=== PATIENT | female | born 1950 | race African-American/Black ===

== ENCOUNTER 2018-03-10 11:59 | Inpatient (IN) | payer MEDICARE ==
--- NOTE | 2018-03-10 12:12 | ER Document Report ---
ED General - General Stated Complaint: NEAR SYNCOPE Time Seen by Provider: 03/10/18 12:11 Notes: Patient is a 67-year-old female that presents to the emergency department for chief complaint of lightheadedness and near syncope. Patient is deaf, and history obtained through writing questions, and patient responding. We did attempt to use the [employer] conference translator, but were not able to reach an Vincentian interactive media designer. Patient was out with some friends, at a restaurant, she was sitting down she started feeling lightheaded, and sweaty, and nauseous, and had a brief syncopal episode at this point EMS was called, upon arrival, they obtained vital signs, when she stood up, she did have positive orthostatic signs. They gave her some IV fluids, and at this time she is feeling much better, denies having any lightheadedness, and overall is feeling better. She has had episodes similar to this in the past. She is on medication for blood pressure and did take her blood pressure medicines this morning. Denies history of CHF, CAD, or dysrhythmias. She denies having any chest pain or shortness of breath at this time. Past Medical History: Hypertension Past Surgical History: Surgical history reviewed, not pertinent to presentation Social History: Non-smoker, rare alcohol use, no drug use. Family History: Reviewed and noncontributory for presenting illness Allergies: Reviewed, see documented allergy list. REVIEW OF SYSTEMS: Other than noted above, the 12 point review of systems was reviewed with the patient and were negative, all pertinent findings are included in the HPI. PHYSICAL EXAMINATION: Vital signs reviewed, nursing noted reviewed. GENERAL: Well-appearing, well-nourished and in no acute distress. HEAD: Atraumatic, normocephalic. EYES: Eyes appear normal, extraocular movements intact, sclera anicteric, conjunctiva are normal. ENT: nares patent, oropharynx clear without exudates. Moist mucous membranes. NECK: Normal range of motion, supple without lymphadenopathy LUNGS: Breath sounds clear to auscultation bilaterally and equal. No wheezes rales or rhonchi. HEART: Heart rate mildly tachycardic, regular rhythm., No audible murmurs ABDOMEN: Soft, nontender, normoactive bowel sounds. No rebound, guarding, or rigidity. No masses appreciated. EXTREMITIES: Nontender, good range of motion, no pitting or edema. NEUROLOGICAL: No focal neurological deficits. Moves all extremities spontaneously Motor and sensory grossly intact on exam. PSYCH: Normal mood, normal affect. SKIN: Warm, Dry, normal turgor, no rashes or lesions noted on exposed skin Past Medical History - Social History Smoking Status: Never Smoker Family History: Reviewed & Not Pertinent Physical Exam - Vital signs Vitals: Resp Pulse Ox 20 98 03/10/18 12:49 03/10/18 12:49 Course - Re-evaluation Re-evalutation: Patient seen and examined vital signs reviewed. Laboratory data and imaging were ordered as appropriate for the patient's presenting symptoms and complaint, with consideration of any critical or life threatening conditions that may be associated with their obtained history and exam as noted above. Patient was treated with IV fluid bolus Results were reviewed when available and demonstrated normal CBC, negative troponin, UA was positive for ketones, indicative of possible mild dehydration, leading to the patient's orthostasis. CMP results, had hemolyzed twice, I did ask for the lab to result her renal function, her potassium was 3.6 despite hemolysis, which could indicate significant hypokalemia, I did give the patient 40 mEq of oral potassium, given IV fluids, orthostatic vital signs were ordered, yet to be completed. The patient was re-evaluated and was improved, however she is still tachycardic, which is concerning, with a syncopal episode, thought to be orthostatic, I felt the patient should be observed in the hospital for this, given that she is not improving from a tachycardia standpoint with IV fluids, and possible significant hypokalemia, will order repeat BMP, I did give the patient 40 mEq of oral potassium, ordered a repeat BMP to be drawn, but at this point I discussed this case with the hospitalist, given that the patient has persistent tachycardia despite IV fluids, and a syncopal episode, with her age, there is concern for other underlying etiology of her syncopal episode, and warrants further management, which they are in agreement with, Dr. Gil, graciously accepted the patient onto their service. Results were discussed with the patient at this point, after careful consideration I feel that that patient can be discharged from the emergency department, the patient was educated treatments and reasons to return to the emergency department based on their presumed diagnosis as noted above, they were advised to followup with a primary care physician in 2-3 days. Patient was agreeable to plan of care. *Note is created using voice recognition software and may contain spelling, syntax or grammatical errors. Laboratory 03/10/18 03/10/18 03/10/18 13:19 13:19 13:19 WBC 9.5 RBC 4.66 Hgb 14.1 Hct 42.6 MCV 91 MCH 30.3 MCHC 33.1 RDW 15.8 H Plt Count 264 Seg Neutrophils % 82.3 H Lymphocytes % 11.1 L Monocytes % 6.0 Eosinophils % 0.1 Basophils % 0.5 Absolute Neutrophils 7.8 Absolute Lymphocytes 1.1 Absolute Monocytes 0.6 Absolute Eosinophils 0.0 Absolute Basophils 0.0 Sodium Cancelled Potassium Cancelled Chloride Cancelled Carbon Dioxide Cancelled Anion Gap Cancelled BUN Cancelled Creatinine Cancelled Est GFR ( Amer) Cancelled Est GFR (Non-Af Amer) Cancelled Glucose Cancelled Calcium Cancelled Total Bilirubin Cancelled Direct Bilirubin Cancelled Neonat Total Bilirubin Cancelled Neonat Direct Bilirubin Cancelled Neonat Indirect Bili Cancelled AST Cancelled ALT Cancelled Alkaline Phosphatase Cancelled Troponin I < 0.012 Total Protein Cancelled Albumin Cancelled Urine Color Urine Appearance Urine pH Ur Specific [place] Urine Protein Urine Glucose (UA) Urine Ketones Urine Blood Urine Nitrite Urine Bilirubin Urine Urobilinogen Ur Leukocyte Esterase Urine WBC (Auto) Urine RBC (Auto) U Hyaline Cast (Auto) Urine Bacteria (Auto) Squamous Epi Cells Auto Urine Mucus (Auto) Urine Ascorbic Acid 03/10/18 03/10/18 15:06 15:15 WBC RBC Hgb Hct MCV MCH MCHC RDW Plt Count Seg Neutrophils % Lymphocytes % Monocytes % Eosinophils % Basophils % Absolute Neutrophils Absolute Lymphocytes Absolute Monocytes Absolute Eosinophils Absolute Basophils Sodium 136.0 L Potassium 3.6 Chloride 102 Carbon Dioxide 22 Anion Gap 12 BUN 20 Creatinine 1.13 Est GFR ( Amer) 58 L Est GFR (Non-Af Amer) 48 L Glucose 126 H Calcium 8.9 Total Bilirubin 1.9 H Direct Bilirubin 0.7 H Neonat Total Bilirubin Not Reportable Neonat Direct Bilirubin Not Reportable Neonat Indirect Bili Not Reportable AST 62 H ALT 27 Alkaline Phosphatase 75 Troponin I Total Protein 8.6 H Albumin 4.3 Urine Color YELLOW Urine Appearance CLOUDY Urine pH 5.0 Ur Specific [place] 1.017 Urine Protein 100 H Urine Glucose (UA) 50 H Urine Ketones 20 H Urine Blood MODERATE H Urine Nitrite NEGATIVE Urine Bilirubin NEGATIVE Urine Urobilinogen 2.0 H Ur Leukocyte Esterase SMALL H Urine WBC (Auto) 7 Urine RBC (Auto) 3 U Hyaline Cast (Auto) 27 Urine Bacteria (Auto) TRACE Squamous Epi Cells Auto 3 Urine Mucus (Auto) MANY Urine Ascorbic Acid NEGATIVE - Vital Signs Vital signs: Temp Pulse Resp BP Pulse Ox 97.6 F 111 H 31 H 143/92 H 97 03/10/18 13:40 03/10/18 13:28 03/10/18 14:31 03/10/18 13:40 03/10/18 14:30 - Laboratory Result Diagrams: 03/10/18 13:19 03/10/18 15:15 Laboratory results interpreted by me: 03/10/18 03/10/18 03/10/18 13:19 15:06 15:15 RDW 15.8 H Seg Neutrophils % 82.3 H Lymphocytes % 11.1 L Sodium 136.0 L Est GFR ( Amer) 58 L Est GFR (Non-Af Amer) 48 L Glucose 126 H Total Bilirubin 1.9 H Direct Bilirubin 0.7 H AST 62 H Total Protein 8.6 H Urine Protein 100 H Urine Glucose (UA) 50 H Urine Ketones 20 H Urine Blood MODERATE H Urine Urobilinogen 2.0 H Ur Leukocyte Esterase SMALL H - EKG Interpretation by Me Additional EKG results interpreted by me: EKG demonstrates sinus tachycardia with a ventricular rate of 108 bpm, left axis deviation, QTC 488 ms, poor R wave progression, no ST changes noted, no prior EKG for comparison. Discharge - Discharge Clinical Impression: Tachycardia Syncope Qualifiers: Syncope type: unspecified Qualified Code(s): R55 - Syncope and collapse Condition: Stable Disposition: ADMITTED OBSERVATION Admitting Provider: Hospitalist - Dr. Gil Unit Admitted: Telemetry Referrals: JE TIPTON MD [ACTIVE STAFF] - Follow up tomorrow (or your primary care. )
[2018-03-10] MEDS ORDERED: NORMAL SALINE 1000 ML 1,000 ML IV ONE (12:40)
--- NOTE | 2018-03-10 12:50 | EKG REPORT ---
SEVERITY:- ABNORMAL ECG - SINUS TACHYCARDIA PROBABLE LEFT ATRIAL ABNORMALITY LEFT VENTRICULAR HYPERTROPHY CONSIDER ANTERIOR INFARCT BORDERLINE T ABNORMALITIES, INFERIOR LEADS BORDERLINE PROLONGED QT INTERVAL : Confirmed by: Gal Kramer MD 10-Mar-2018 12:49:46
[2018-03-10 13:50] LABS: ABSOLUTE LYMPHOCYTES (AUTO) 1.1 10^3/uL (0.5-4.7); ABSOLUTE MONOCYTES (AUTO) 0.6 10^3/uL (0.1-1.4); ABSOLUTE NEUT (AUTO) 7.8 10^3/uL (1.7-8.2); BASOPHILS % (AUTO) 0.5 % (0-2); EOSINOPHILS % (AUTO) 0.1 % (0-6); HEMATOCRIT 42.6 % (36.0-47.0); HEMOGLOBIN 14.1 g/dL (12.0-15.5); LYMPHOCYTES % (AUTO) 11.1 % (13-45); MEAN CORPUSCULAR HEMOGLOBIN 30.3 pg (27.0-33.4); MEAN CORPUSCULAR HGB CONC 33.1 g/dL (32.0-36.0); MEAN CORPUSCULAR VOLUME 91 fl (80-97); PLATELET COUNT 264 10^3/uL (150-450); RED BLOOD COUNT 4.66 10^6/uL (3.72-5.28); RED CELL DISTRIBUTION WIDTH 15.8 % (11.5-14.0); SEGMENTED NEUTROPHILS % (AUTO) 82.3 % (42-78); TOTAL CELLS COUNTED % (AUTO) 100 %; WHITE BLOOD COUNT 9.5 10^3/uL (4.0-10.5)
[2018-03-10 15:35] LABS: APPEARANCE,URINE CLOUDY; BILIRUBIN,URINE NEGATIVE (NEGATIVE); GLUCOSE, URINE 50 mg/dL (NEGATIVE); KETONES,URINE 20 mg/dL (NEGATIVE); LEUKOCYTE ESTERASE,URINE SMALL (NEGATIVE); NITRITE,URINE NEGATIVE (NEGATIVE); PROTEIN,URINE 100 mg/dL (NEGATIVE); URINE SPECIFIC GRAVITY 1.017
[2018-03-10 15:36] LABS: COLOR,URINE YELLOW
[2018-03-10 16:09] LABS: ALBUMIN 4.3 g/dL (3.5-5.0); ANION GAP 12 (5-19); BILIRUBIN,DIRECT 0.7 mg/dL (0.0-0.4); BILIRUBIN,TOTAL 1.9 mg/dL (0.2-1.3); BLOOD UREA NITROGEN 20 mg/dL (7-20); CALCIUM 8.9 mg/dL (8.4-10.2); CARBON DIOXIDE 22 mmol/L (22-30); CHLORIDE 102 mmol/L (98-107); GLUCOSE 126 mg/dL (75-110); TOTAL PROTEIN 8.6 g/dL (6.3-8.2)
[2018-03-10 16:19] LABS: ALKALINE PHOSPHATASE 75 U/L (38-126); ASPARTATE AMINO TRANSFERASE 62 U/L (14-36); POTASSIUM 3.6 mmol/L (3.6-5.0)
[2018-03-10 16:20] LABS: ALANINE AMINOTRANSFERASE 27 U/L (9-52)
[2018-03-10] MEDS ORDERED: POTASSIUM CHLORIDE 10 MEQ CAPSULE.ER PO ONE (16:21)
--- NOTE | 2018-03-10 17:22 | PDOC H&P ---
History of Present Illness Admission Date/PCP: 03/10/18 17:17 Patient complains of: Presyncope History of Present Illness: MUNDO RAE is a 67 year old female with deafness, hypertension and hyperlipidemia who was brought in because of presyncope. History was obtained with a personal/proofsheet corrector on bedside. Patient was apparently fine this morning. She went to [employer] and was sitting in her of dizzy. She does slouch while sitting on the chair not pass out. No head trauma. Patient was seen by EMS and she was found to have orthostatic blood pressures. Upon further questioning, patient says that she has been having multiple episodes of watery, nonbloody stools in the past few days. She says that she had 4 episodes of watery stools yesterday. Denies nausea or vomiting but says that she has been having poor oral intake and has not been drinking or eating well in the past few days. She denies fever. Denies chest pain or shortness of breath. Past Medical History Cardiac Medical History: Reports: Hypertension Social History Smoking Status: Never Smoker Family History Family History: Reviewed & Not Pertinent Parental Family History Reviewed: Yes - no premature CAD Children Family History Reviewed: No Sibling(s) Family History Reviewed.: No Medication/Allergy Allergies/Adverse Reactions: No Known Allergies Allergy (Unverified 03/10/18 20:51) Review of Systems All systems: reviewed and no additional remarkable complaints except as stated - As mentioned in HPI Physical Exam Vital Signs: Temp Pulse Resp BP Pulse Ox 97.6 F 111 H 31 H 143/92 H 97 03/10/18 13:40 03/10/18 13:28 03/10/18 14:31 03/10/18 13:40 03/10/18 14:30 Intake & Output 03/09/18 03/10/18 03/11/18 06:59 06:59 06:59 Intake Total 1000 Balance 1000 Weight 185 lb General appearance: PRESENT: no acute distress, well-developed, well-nourished Head exam: PRESENT: atraumatic, normocephalic Eye exam: PRESENT: conjunctiva pink, EOMI, PERRLA. ABSENT: scleral icterus Ear exam: PRESENT: normal external ear exam Mouth exam: PRESENT: moist, tongue midline Neck exam: ABSENT: carotid bruit, JVD, lymphadenopathy, thyromegaly Respiratory exam: PRESENT: clear to auscultation carolyn. ABSENT: rales, rhonchi, wheezes Cardiovascular exam: PRESENT: RRR. ABSENT: diastolic murmur, rubs, systolic murmur Pulses: PRESENT: normal dorsalis pedis pul GI/Abdominal exam: PRESENT: normal bowel sounds, soft. ABSENT: distended, guarding, mass, organolmegaly, rebound, tenderness Rectal exam: PRESENT: deferred Neurological exam: PRESENT: alert, awake, oriented to person, oriented to place, oriented to time, oriented to situation, CN II-XII grossly intact. ABSENT: motor sensory deficit Results Laboratory Results: 03/10/18 13:19 03/10/18 15:15 03/10/18 03/10/18 03/10/18 13:19 13:19 15:06 WBC 9.5 RBC 4.66 Hgb 14.1 Hct 42.6 MCV 91 MCH 30.3 MCHC 33.1 RDW 15.8 H Plt Count 264 Seg Neutrophils % 82.3 H Lymphocytes % 11.1 L Monocytes % 6.0 Eosinophils % 0.1 Basophils % 0.5 Absolute Neutrophils 7.8 Absolute Lymphocytes 1.1 Absolute Monocytes 0.6 Absolute Eosinophils 0.0 Absolute Basophils 0.0 Sodium Cancelled Potassium Cancelled Chloride Cancelled Carbon Dioxide Cancelled Anion Gap Cancelled BUN Cancelled Creatinine Cancelled Est GFR ( Amer) Cancelled Est GFR (Non-Af Amer) Cancelled Glucose Cancelled Calcium Cancelled Total Bilirubin Cancelled AST Cancelled ALT Cancelled Alkaline Phosphatase Cancelled Total Protein Cancelled Albumin Cancelled Urine Color YELLOW Urine Appearance CLOUDY Urine pH 5.0 Ur Specific [place] 1.017 Urine Protein 100 H Urine Glucose (UA) 50 H Urine Ketones 20 H Urine Blood MODERATE H Urine Nitrite NEGATIVE Ur Leukocyte Esterase SMALL H Urine WBC (Auto) 7 Urine RBC (Auto) 3 03/10/18 15:15 WBC RBC Hgb Hct MCV MCH MCHC RDW Plt Count Seg Neutrophils % Lymphocytes % Monocytes % Eosinophils % Basophils % Absolute Neutrophils Absolute Lymphocytes Absolute Monocytes Absolute Eosinophils Absolute Basophils Sodium 136.0 L Potassium 3.6 Chloride 102 Carbon Dioxide 22 Anion Gap 12 BUN 20 Creatinine 1.13 Est GFR ( Amer) 58 L Est GFR (Non-Af Amer) 48 L Glucose 126 H Calcium 8.9 Total Bilirubin 1.9 H AST 62 H ALT 27 Alkaline Phosphatase 75 Total Protein 8.6 H Albumin 4.3 Urine Color Urine Appearance Urine pH Ur Specific [place] Urine Protein Urine Glucose (UA) Urine Ketones Urine Blood Urine Nitrite Ur Leukocyte Esterase Urine WBC (Auto) Urine RBC (Auto) 03/10/18 13:19 Troponin I < 0.012 Assessment & Plan - Diagnosis (1) Pre-syncope Is this a current diagnosis for this admission?: Yes Plan: Likely secondary to orthostasis from volume depletion. Patient does appear dehydrated. He was given a liter of fluid bolus in the ER. We will continue IV fluids. We will continue to check orthostatic vital signs every 4. Will observe patient on telemetry floor overnight. (2) Acute diarrhea Is this a current diagnosis for this admission?: Yes Plan: Check stool WBC and C. difficile testing if there is recurrence of watery stools. - Time Time Spent: 30 to 50 Minutes
[2018-03-10 19:33] LABS: ANION GAP 10 (5-19); BLOOD UREA NITROGEN 21 mg/dL (7-20); CALCIUM 8.8 mg/dL (8.4-10.2); CARBON DIOXIDE 24 mmol/L (22-30); CHLORIDE 103 mmol/L (98-107); GLUCOSE 118 mg/dL (75-110); POTASSIUM 3.9 mmol/L (3.6-5.0); SODIUM 136.6 mmol/L (137-145)
[2018-03-10] MEDS: HEPARIN SOD (PORCINE) 5,000 UNIT/ML 1 ML SYRINGE SUBCUT SCH (21:43)
[2018-03-10] MEDS: NORMAL SALINE 1000 ML 1,000 ML IV PRN (22:46)
[2018-03-11 05:26] LABS: ALANINE AMINOTRANSFERASE 27 U/L (9-52); ALBUMIN 3.4 g/dL (3.5-5.0); ALKALINE PHOSPHATASE 58 U/L (38-126); ANION GAP 8 (5-19); ASPARTATE AMINO TRANSFERASE 43 U/L (14-36); BILIRUBIN,DIRECT 0.3 mg/dL (0.0-0.4); BILIRUBIN,TOTAL 1.1 mg/dL (0.2-1.3); BLOOD UREA NITROGEN 20 mg/dL (7-20); CALCIUM 8.8 mg/dL (8.4-10.2); CARBON DIOXIDE 21 mmol/L (22-30); CHLORIDE 108 mmol/L (98-107); GLUCOSE 92 mg/dL (75-110); SODIUM 137.4 mmol/L (137-145); TOTAL PROTEIN 6.9 g/dL (6.3-8.2)
[2018-03-11] MEDS: NORMAL SALINE 1000 ML 1,000 ML IV PRN (05:26)
[2018-03-11] MEDS: HEPARIN SOD (PORCINE) 5,000 UNIT/ML 1 ML SYRINGE SUBCUT SCH ×2 (09:17→22:38)
[2018-03-11] MEDS ORDERED: NORMAL SALINE 1000 ML 1,000 ML IV ONE (10:45)
--- NOTE | 2018-03-11 19:02 | PDOC PROGRESS REPORT ---
Subjective Progress Note for:: 03/11/18 Subjective:: MUNDO RAE is a 67 year old female with deafness, hypertension and hyperlipidemia who was brought in because of presyncope and diarrhea. History was obtained with a personal/translator interpreter on bedside. She was admitted for presyncope significant orthostasis. No acute event overnight. This morning, patient says she felt better. However pressures today are still orthostatic. She says her stools have become more formed and is almost close to her baseline. Denies chest pain or shortness of breath. Reason For Visit: PRESYNCOPE, ACUTE DIARRHEA Physical Exam Vital Signs: Temp Pulse Resp BP Pulse Ox 98.3 F 97 14 169/90 H 98 03/11/18 16:30 03/11/18 16:30 03/11/18 16:30 03/11/18 16:30 03/11/18 16:30 Intake & Output 03/10/18 03/11/18 03/12/18 06:59 06:59 06:59 Intake Total 2474 2598 Balance 2474 2598 Weight 216 lb 7.903 oz General appearance: PRESENT: no acute distress, well-developed, well-nourished Head exam: PRESENT: atraumatic, normocephalic Eye exam: PRESENT: conjunctiva pink, EOMI, PERRLA. ABSENT: scleral icterus Ear exam: PRESENT: normal external ear exam Neck exam: ABSENT: carotid bruit, JVD, lymphadenopathy, thyromegaly Respiratory exam: PRESENT: clear to auscultation carolyn. ABSENT: rales, rhonchi, wheezes Cardiovascular exam: PRESENT: RRR. ABSENT: diastolic murmur, rubs, systolic murmur Pulses: PRESENT: normal dorsalis pedis pul GI/Abdominal exam: PRESENT: normal bowel sounds, soft. ABSENT: distended, guarding, mass, organolmegaly, rebound, tenderness Rectal exam: PRESENT: deferred Neurological exam: PRESENT: alert, awake, oriented to person, oriented to place, oriented to time, oriented to situation, CN II-XII grossly intact. ABSENT: motor sensory deficit Results Laboratory Results: 03/10/18 13:19 03/11/18 04:32 03/10/18 03/11/18 03/11/18 19:00 04:32 05:00 Sodium 136.6 L 137.4 Potassium 3.9 4.0 Chloride 103 108 H Carbon Dioxide 24 21 L Anion Gap 10 8 BUN 21 H 20 Creatinine 1.05 0.81 Est GFR ( Amer) > 60 > 60 Est GFR (Non-Af Amer) 52 L > 60 Glucose 118 H 92 Calcium 8.8 8.8 Total Bilirubin 1.1 AST 43 H ALT 27 Alkaline Phosphatase 58 Total Protein 6.9 Albumin 3.4 L Stool for White Cells NO WBCs SEEN 03/10/18 15:06 Clean Catch Midstream Urine Culture - Final Mixed Urogenital [place] 03/10/18 13:19 Troponin I < 0.012 Assessment & Plan - Diagnosis (1) Pre-syncope Is this a current diagnosis for this admission?: Yes Plan: Likely secondary to orthostasis from volume depletion from dehydration. No recurrence of symptoms but blood pressures this morning remain orthostatic. (2) Acute diarrhea Is this a current diagnosis for this admission?: Yes Plan: Resolved. (3) Orthostasis Is this a current diagnosis for this admission?: Yes Plan: Will give another bolus of fluid. Will continue IV fluids today. Continue to check orthostatic vital signs. - Time Time Spent with patient: 15-24 minutes
[2018-03-12] MEDS: HEPARIN SOD (PORCINE) 5,000 UNIT/ML 1 ML SYRINGE SUBCUT SCH ×2 (09:21→22:47)
[2018-03-12] MEDS ORDERED: LOSARTAN POTASSIUM 50 MG TABLET PO ONE (09:30)
[2018-03-12 12:32] LABS: APPEARANCE,URINE CLEAR; BILIRUBIN,URINE NEGATIVE (NEGATIVE); COLOR,URINE STRAW; GLUCOSE, URINE NEGATIVE (NEGATIVE); KETONES,URINE NEGATIVE (NEGATIVE); LEUKOCYTE ESTERASE,URINE NEGATIVE (NEGATIVE); NITRITE,URINE NEGATIVE (NEGATIVE); PROTEIN,URINE NEGATIVE (NEGATIVE); URINE SPECIFIC GRAVITY 1.004; UROBILINOGEN,URINE NEGATIVE mg/dL (<2.0)
[2018-03-12] MEDS ORDERED: NORMAL SALINE 1000 ML 1,000 ML IV PRN (15:00)
--- NOTE | 2018-03-12 15:16 | PDOC PROGRESS REPORT ---
Subjective Progress Note for:: 03/12/18 Subjective:: MUNDO RAE is a 67 year old female with deafness, hypertension and hyperlipidemia who was brought in because of presyncope and diarrhea. History was obtained with a personal/financial legal assistant on bedside. She was admitted for presyncope and significant orthostasis. No acute event overnight. Communication is done through the [employer] system as patient is deaf. This morning, patient says she continues to feel better. Her pressures have continued to shoot up to the 200 systolic. Unremarkable telemetry monitoring. Orthostatic vital signs last night did improve but this morning, patient continued to have significant orthostasis. Upon further questioning, patient does state that she was taking antihypertensive medication a year ago but this was discontinued as her PCP . She is unable to remember her blood pressure medication. She says her stools are now at baseline with no recurrence of diarrhea. Denies chest pain or shortness of breath. She is saturating at 100% on room air. Reason For Visit: PRESYNCOPE, ACUTE DIARRHEA Physical Exam Vital Signs: Temp Pulse Resp BP Pulse Ox 97.9 F 104 H 18 187/108 H 100 03/12/18 11:08 03/12/18 11:08 03/12/18 11:08 03/12/18 11:08 03/12/18 11:08 Intake & Output 03/11/18 03/12/18 03/13/18 06:59 06:59 06:59 Intake Total 2474 2598 880 Output Total 240 1000 Balance 2474 2358 -120 Weight 216 lb 7.903 oz 293 lb 3.437 oz General appearance: PRESENT: no acute distress, well-developed, well-nourished Head exam: PRESENT: atraumatic, normocephalic Eye exam: PRESENT: conjunctiva pink, EOMI, PERRLA. ABSENT: scleral icterus Ear exam: PRESENT: normal external ear exam Neck exam: ABSENT: carotid bruit, JVD, lymphadenopathy, thyromegaly Respiratory exam: PRESENT: clear to auscultation carolyn. ABSENT: rales, rhonchi, wheezes Cardiovascular exam: PRESENT: RRR. ABSENT: diastolic murmur, rubs, systolic murmur Pulses: PRESENT: normal dorsalis pedis pul GI/Abdominal exam: PRESENT: normal bowel sounds, soft. ABSENT: distended, guarding, mass, organolmegaly, rebound, tenderness Rectal exam: PRESENT: deferred Neurological exam: PRESENT: alert, awake, oriented to person, oriented to place, oriented to time, oriented to situation, CN II-XII grossly intact. ABSENT: motor sensory deficit Results Laboratory Results: 03/10/18 13:19 03/11/18 04:32 03/12/18 12:00 Urine Color STRAW Urine Appearance CLEAR Urine pH 6.0 Ur Specific [place] 1.004 Urine Protein NEGATIVE Urine Glucose (UA) NEGATIVE Urine Ketones NEGATIVE Urine Blood SMALL H Urine Nitrite NEGATIVE Ur Leukocyte Esterase NEGATIVE Urine WBC (Auto) 0 Urine RBC (Auto) 0 03/10/18 15:06 Clean Catch Midstream Urine Culture - Final Mixed Urogenital [place] 03/10/18 13:19 Troponin I < 0.012 Assessment & Plan - Diagnosis (1) Pre-syncope Is this a current diagnosis for this admission?: Yes Plan: Likely secondary to orthostasis from volume depletion from dehydration. No recurrence of symptoms but blood pressures this morning remain orthostatic. Will continue IV fluids. (2) Acute diarrhea Is this a current diagnosis for this admission?: Yes Plan: Resolved. (3) Orthostasis Is this a current diagnosis for this admission?: Yes Plan: Will continue IV fluids today. Continue to check orthostatic vital signs. (4) Hypertension Is this a current diagnosis for this admission?: Yes Plan: Systolic BP went as high as 200s. Patient self discontinued previous antihypertensive as she says her PCP . Will start patient on Losartan. - Time Time Spent with patient: 15-24 minutes
--- NOTE | 2018-03-12 19:49 | RADIOLOGY REPORT (SQ) ---
EXAM DESCRIPTION: CAROTID DOPPLER COMPLETED DATE/TIME: 03/12/2018 7:39 pm REASON FOR STUDY: syncope COMPARISON: None. TECHNIQUE: Grayscale ultrasound, Doppler velocity and spectra, and color Doppler images acquired of the extra-cranial carotid and vertebral arteries. Images stored on PACS. LIMITATIONS: None. FINDINGS: RIGHT CAROTID CCA Velocities: Within normal limits. ICA Velocities Peak systolic 0.56 m/s. End diastolic 0.13 m/s. Proximal ICA/CCA peak systolic ratio 0.9. Spectra normal. No significant plaque. LEFT CAROTID CCA Velocities: Within normal limits. ICA Velocities Peak systolic 0.62 m/s. End diastolic 0.15 m/s. Proximal ICA/CCA peak systolic ratio 1.1. Spectra normal. No significant plaque. VERTEBRAL ARTERIES: Antegrade flow. Normal waveforms. SUBCLAVIAN ARTERIES: No finding. OTHER: No other significant finding. IMPRESSION: NO HEMODYNAMICALLY SIGNIFICANT STENOSIS. COMMENT: Quality ID #[id number]: Velocity criteria are extrapolated from the diameter data as defined by t he Society of Radiologists in Ultrasound Consensus Conference. Radiology 2003: 229; 340-346. TECHNICAL DOCUMENTATION: JOB ID: [id number] [employer]- All Rights Reserved Reading location - IP/workstation name: [email or web address]
[2018-03-13] MEDS: HEPARIN SOD (PORCINE) 5,000 UNIT/ML 1 ML SYRINGE SUBCUT SCH (09:13)
[2018-03-13] MEDS ORDERED: NORMAL SALINE 1000 ML 500 ML IV ONE (11:48)
[2018-03-13] MEDS: METOPROLOL TARTRATE 25 MG TABLET PO SCH ×2 (12:51→17:46)
[2018-03-13 16:44] VITALS: BP 161/90
--- NOTE | 2018-03-13 19:38 | PDOC DISCHARGE SUMMARY ---
General - Admit/Disc Date/PCP Admission Date/Primary Care Provider: 03/10/18 17:17 Discharge Date: 03/13/18 - Discharge Diagnosis (1) Pre-syncope Is this a current diagnosis for this admission?: Yes (2) Acute diarrhea Is this a current diagnosis for this admission?: Yes (3) Orthostasis Is this a current diagnosis for this admission?: Yes (4) Hypertension Is this a current diagnosis for this admission?: Yes - Additional Information Resuscitation Status: Full Code Prescriptions: Metoprolol Tartrate [Lopressor 25 mg Tablet] 12.5 mg PO BID #30 tablet Home Medications: Metoprolol Tartrate [Lopressor 25 mg Tablet] 12.5 mg PO BID #30 tablet 03/13/18 History of Present Illness History of Present Illness: MUNDO RAE is a 67 year old female with deafness, hypertension and hyperlipidemia who was brought in because of presyncope. History was obtained with a personal/form builder helper on bedside. Patient was apparently fine this morning. She went to [employer] and was sitting in her of dizzy. She does slouch while sitting on the chair not pass out. No head trauma. Patient was seen by EMS and she was found to have orthostatic blood pressures. Upon further questioning, patient says that she has been having multiple episodes of watery, nonbloody stools in the past few days. She says that she had 4 episodes of watery stools yesterday. Denies nausea or vomiting but says that she has been having poor oral intake and has not been drinking or eating well in the past few days. She denies fever. Denies chest pain or shortness of breath. Hospital Course Hospital Course: MUNDO RAE is a 67 year old female with deafness, hypertension and hyperlipidemia who was brought in because of presyncope and diarrhea. History was obtained with a personal/form builder helper on bedside. She was admitted for presyncope and significant orthostasis. Communication is done through the [employer] system as patient is deaf. Patient reported she continued to feel better. Her pressures have continued to go up to the 200 systolic. Unremarkable telemetry monitoring. Orthostatic vital signs improve but this morning, patient continued to have significant orthostasis. Upon further questioning, patient does state that she was taking antihypertensive medication a year ago but this was discontinued as her PCP . She is unable to remember her blood pressure medication. She had complete resolution of her diarrhea and she was adequately hydrated. She was also tolerating oral intake very well. However, she continued to have orthostasis albeit improved with elevated - Diagnosis (1) Pre-syncope Is this a current diagnosis for this admission?: Yes Plan: Likely secondary to orthostasis from volume depletion from dehydration. No recurrence of symptoms but blood pressures this morning remain orthostatic. Will continue IV fluids. Lopressor. (2) Acute diarrhea Is this a current diagnosis for this admission?: Yes Plan: Resolved. (3) Orthostasis Is this a current diagnosis for this admission?: Yes Plan: Will continue IV fluids today. Continue to check orthostatic vital signs. (4) Hypertension Is this a current diagnosis for this admission?: Yes Plan: Systolic BP went as high as 200s. Patient self discontinued previous antihypertensive as she says her PCP . Will start patient on Losartan. Physical Exam Vital Signs: Temp Pulse Resp BP Pulse Ox 98.5 F 94 20 161/90 H 98 03/13/18 15:08 03/13/18 15:08 03/13/18 15:08 03/13/18 15:08 03/13/18 15:08 Intake & Output 03/12/18 03/13/18 03/14/18 06:59 06:59 06:59 Intake Total 2598 1683 684 Output Total 240 1600 Balance 2358 83 684 Weight 293 lb 3.437 oz 226 lb 10.163 oz Results Laboratory Results: 03/10/18 13:19 03/11/18 04:32 03/10/18 13:19 Troponin I < 0.012 Impressions: Carotid Doppler Study 03/12/18 15:14 IMPRESSION: NO HEMODYNAMICALLY SIGNIFICANT STENOSIS. Qualifiers - * PATIENT BEING DISCHARGED WITH ANY OF THE FOLLOWING DIAGNOSIS: No
== END 2018-03-13 19:00 | disposition home or self-care (01) | DRG 312 ==
LOC: ER 11:59 → OBSVTOIN 17:17 → EH 17:17 → 4N 17:57
PROVIDERS: ADMIT Internal Medicine; ATTEND Internal Medicine
DX: I95.1 Orthostatic hypotension (principal); R19.7 Diarrhea, unspecified; I10 Essential (primary) hypertension; E78.00 Pure hypercholesterolemia, unspecified; H91.90 Unspecified hearing loss, unspecified ear; E86.0 Dehydration; R00.0 Tachycardia, unspecified; Z23 Encounter for immunization
CPT/HCPCS: 36415; 80048; 80053; 81001; 84484; 85025; 87086; 87493; 89055; 90471; 90686; 93005; 93010; 93880; 96360; 96361; 99285; G0008; G0378; J1644; J3490; J7030

== ENCOUNTER → 2018-04-15 | Outpatient (CLI) | payer MEDICARE ==
--- NOTE | 2018-04-17 12:50 | XCELERA REPORT ---
[address] [address] Transthoracic Echocardiogram Report Name: MUNDO RAE Age: 67 yrs Gender: Female : 1950 Patient Status: Outpatient Patient Location: [facility] Study Date: 04/15/2018 11:28 AM Height: 66 in Weight: 200 lb BSA: 2.0 m2 Procedure: A two-dimensional transthoracic echocardiogram with color flow and Doppler was performed. Study Quality: Fair. Reason For Study: MURMUR History: MURMUR. Ordering Physician: DENISA TINAJERO Performed By: Bruno Esteban Interpretation Summary The left ventricle is normal in size. There is mild concentric left ventricular hypertrophy. LV EF is > than 65% Left ventricular systolic function is normal. Doppler measurements suggest impaired left ventricular relaxation, which is associated with grade I/IV or mild diastolic dysfunction The left ventricular wall motion is normal. There is no thrombus. There is no ventricular septal defect visualized. The right ventricle is normal in size and function. The right atrium is normal. The left atrial size is normal. The interatrial septum is intact with no evidence for an atrial septal defect. There is no Doppler evidence for an interatrial shunt There is mild mitral annular calcification. There is no evidence of mitral valve prolapse. There is no mitral valve stenosis. There is no vegetation seen on the mitral valve. There is no mitral regurgitation noted. There is no aortic valvular vegetation. There is no aortic valve stenosis There is aortic sclerosis without aortic stenosis. There is no LVOT obstruction. No aortic regurgitation is present. There is no tricuspid stenosis. There is a mild amount of tricuspid regurgitation There is mild pulmonary hypertension by echo RVSP is 34 t0 39 mm of Hg , with RA mean of 5 to 10. There is no pulmonic valvular stenosis. There is a trace amount of pulmonic regurgitation The aortic root is normal size. The inferior vena cava appeared normal and decreased > 50% with respiration (RAP 5-10 mmHg) There is no pericardial effusion. MMode/2D Measurements & Calculations RVDd: 3.7 cm LVIDd: 4.9 cm FS: 47.3 % Ao root diam: 3.0 cm IVSd: 1.2 cm LVIDs: 2.6 cm EDV(Teich): 112.9 ml Ao root area: 7.0 cm2 LVPWd: 1.2 cm ESV(Teich): 24.2 ml LA dimension: 3.3 cm EF(Teich): 78.6 % Doppler Measurements & Calculations MV E max nasra: MV P1/2t max nasra: Ao V2 max: LV V1 max P.4 cm/sec 117.7 cm/sec 139.8 cm/sec 7.2 mmHg MV A max nasra: MV P1/2t: 105.5 msec Ao max PG: LV V1 max: 126.1 cm/sec MVA(P1/2t): 2.1 cm2 7.8 mmHg 133.8 cm/sec MV E/A: 0.93 MV dec slope: 327.0 cm/sec2 MV dec time: 0.30 sec PA V2 max: PI end-d nasra: TR max nasra: MV P1/2t-pr_phl: 102.5 cm/sec 103.4 cm/sec 267.9 cm/sec 105.5 msec PA max P.2 mmHg TR max P.7 mmHg Left Ventricle The left ventricle is normal in size. There is mild concentric left ventricular hypertrophy. LV EF is > than 65%. Left ventricular systolic function is normal. Doppler measurements suggest impaired left ventricular relaxation, which is associated with grade I/IV or mild diastolic dysfunction. The left ventricular wall motion is normal. There is no thrombus. There is no ventricular septal defect visualized. Right Ventricle The right ventricle is normal in size and function. Atria The right atrium is normal. The left atrial size is normal. The interatrial septum is intact with no evidence for an atrial septal defect. There is no Doppler evidence for an interatrial shunt. Mitral Valve There is mild mitral annular calcification. There is no evidence of mitral valve prolapse. There is no vegetation seen on the mitral valve. There is no mitral valve stenosis. There is no mitral regurgitation noted. Aortic Valve There is no aortic valvular vegetation. There is no aortic valve stenosis. There is aortic sclerosis without aortic stenosis. There is no LVOT obstruction. No aortic regurgitation is present. Tricuspid Valve There is no tricuspid stenosis. There is a mild amount of tricuspid regurgitation. There is mild pulmonary hypertension by echo. RVSP is 34 t0 39 mm of Hg , with RA mean of 5 to 10. Pulmonic Valve There is no pulmonic valvular stenosis. There is a trace amount of pulmonic regurgitation. Great Vessels The aortic root is normal size. The inferior vena cava appeared normal and decreased > 50% with respiration (RAP 5-10 mmHg). Effusions There is no pericardial effusion. : DENISA TINAJERO > Denisa Tinajero
== END ==
LOC: RAD 11:01
PROVIDERS: ATTEND Specialist
DX: R01.1 Cardiac murmur, unspecified (principal)
CPT/HCPCS: 93306